=== PATIENT | female | born 1940 | race Caucasian/White ===

== ENCOUNTER → 2016-07-26 | Outpatient (CLI) | payer MEDICARE ==
[~2016-07-26] MED LIST: ALB0.5V INH; ALBU8.5H2 IH; ALEN70TA47 PO; ALPR0.25 PO; ASP325T PO; ASP81TEC PO; ASPI-587 PO; ASPI-999 PO; AZIT500T5 PO; B&C/1TAB2 PO; CALC-140 PO; CALC-196 PO; CALC200T50 PO; CALCIUM CARB PO; CHOL200018 PO; CHOL500044 PO; DCS100C PO; DICL100G13 TOP; DICL100G31 TP; DIPH25TA31 PO; ENXP40I.4 SQ; FLUT9.9S NSEACH; FURO-125 PO; FURO20TA PO; GBPN100C PO; GLUC100016 PO; GLUC500T PO; HYDR473S50 PO; LRT10T PO; MAGN500T PO; MGX400T PO; NAPR500T8 PO; OMEP20CA12 PO; OXYC-12 PO; POTA2TAB15 PO; POTA99TA17 PO; POTA99TA4 PO; UMEC1BLS IH; VIT PO
--- OUTSIDE RECORDS SUMMARY | 2016-07-26 10:46 | XMS REPORT | Continuity of Care Document ---
Author Author [facility] Organization [facility] Address Unknown Phone Unavailable Care Team Providers Care Welfare Visitor Name Role Phone Calvin Brennan PCP [phone] Source Comments Some departments are not documenting in the electronic medical record. If you do not see the information that you expected, contact Release of Information in the Health Information Management department at [phone] for further assistance in locating additional records.[facility] Active Allergies and Adverse Reactions Allergen Noted Date Severity Reactions Comments Cardizem 01/14/2014 UNKNOWN Fenofibrate 01/13/2014 UNKNOWN Isosorbide Mononitrate 01/13/2014 UNKNOWN Levofloxacin 01/13/2014 UNKNOWN Niacin 01/13/2014 UNKNOWN Nifedipine 01/13/2014 UNKNOWN Novacain 01/14/2014 UNKNOWN Penicillins 01/14/2014 UNKNOWN Rosuvastatin 01/13/2014 UNKNOWN Simvastatin 01/14/2014 UNKNOWN Sulfa (Sulfonamide 01/14/2014 UNKNOWN Antibiotics) Current Medications Prescription Sig. Disp. Refills Start End Date Status Date umeclidinium-vilanterol Inhale 1 Puff by mouth Active (ANORO ELLIPTA) 62.5-25 daily. mcg/actuation dsdv magnesium oxide (MAG-OX) Take 400 mg by mouth Active 400 mg tablet daily. loratadine (CLARITIN) 10 Take 10 mg by mouth Active mg tablet daily. omeprazole DR(+) Take 20 mg by mouth Active (PRILOSEC) 20 mg capsule daily. aspirin EC 81 mg tablet Take 81 mg by mouth Active daily. furosemide (LASIX) 20 mg Take 20 mg by mouth daily Active tablet as needed. Potassium Gluconate 595 Take 1 Tab by mouth daily Active (99) mg tab as needed. calcium carbonate/vitamin Take 1 Tab by mouth twice Active D-3 (OSCAL-500+D) 1250 daily with meals. Calcium mg/200 unit tablet Carb 1250mg delivers 500mg elemental Ca cholecalciferol (Vitamin Take 2,000 Units by mouth Active D3) (VITAMIN D-3) 1,000 daily. units tablet diclofenac(+) (VOLTAREN) Apply 2 g to affected Active 1 % gel topical gel area twice daily as needed. gabapentin (NEURONTIN) Take 100 mg by mouth Active 100 mg capsule daily. ALPRAZolam (XANAX) 0.25 Take 0.25 mg by mouth Active mg tablet twice daily as needed. albuterol 0.5% Inhale 2.5 mg solution as Active (PROVENTIL; VENTOLIN) 2.5 directed every 6 hours as mg/0.5 mL nebu nebulizer needed. solution albuterol (VENTOLIN HFA, Inhale 2 Puffs by mouth Active PROAIR HFA) 90 every 6 hours as needed. mcg/actuation inhaler oxyCODONE-acetaminophen Take 1-2 Tabs by mouth 60 Tab 0 01/18/20 Active (PERCOCET; ENDOCET; every 4 hours as needed 14 ROXICET) 5-325 mg tablet for Pain Max 12 tabs/day docusate (COLACE) 100 mg Take 1 Cap by mouth twice 90 Cap 3 01/18/20 Active capsule daily. 14 Active Problems Problem Noted Date Left acetabular fracture ([facility]) 02/25/2014 Female pelvic hematoma 01/14/2014 Bradycardia 01/14/2014 COPD (chronic obstructive pulmonary disease) ([facility]) 01/14/2014 Obesity 01/14/2014 Acute blood loss anemia 01/14/2014 Pelvic fracture ([facility]) 01/13/2014 Social History Tobacco Use Types Packs/Day Years Used Date Never Smoker Smokeless Tobacco: Never Used Alcohol Use Drinks/Week oz/Week Comments No Last Filed Vital Signs Vital Sign Reading Time Taken Blood Pressure 159/75 04/22/2014 10:33 AM CDT Pulse 92 04/22/2014 10:33 AM CDT Temperature 36.8 C (98.2 F) 01/16/2014 9:48 PM CDT Respiratory Rate - - Height 1.626 m (5' 4") 04/22/2014 10:33 AM CDT Weight 80.74 kg (178 lb) 04/22/2014 10:33 AM CDT Body Mass Index 30.54 04/22/2014 10:33 AM CDT Oxygen Saturation 93% 01/16/2014 9:48 PM CDT Plan of Care Health Maintenance Due Date Last Done Comments Physical (Comprehensive) 1947 Exam Pertussis Vaccine 1951 Tetanus Vaccine 1957 Breast Cancer Screening 1980 Shingles Vaccine 2000 Osteoporosis Screening 2005 Prevnar/Pneumovax (#1) 2005 Influenza Vaccine 03/08/2015 Results from Last 3 Months Not on file
--- NOTE | 2016-07-26 12:23 | Diagnostic Imaging Report ---
PROCEDURE: CT chest and abdomen without contrast. TECHNIQUE: Axial images were obtained from the thoracic inlet through the iliac crest without the administration of intravenous contrast. INDICATION: Hiatal hernia. Cough. FINDINGS: CT chest: There is an indeterminate nodule in the lateral aspect of the superior segment of the right lower lobe measuring 6 mm in size. There is minimal atelectasis seen in the lung bases more on the left side. There is no significant consolidation or mass otherwise. No pleural effusion. No pericardial effusion. There are coronary artery calcifications seen. There are pacemaker cardiac leads noted. The thoracic aorta is normal in caliber. No mediastinal mass. No significantly enlarged mediastinal or axillary lymphadenopathy. There is a moderate-sized paraesophageal hiatal hernia. The fundus and the proximal aspect of the gastric body area in the hernia. CT abdomen: The liver is mildly hypodense compatible with fatty infiltration. The gallbladder demonstrates no calcified stone. The spleen demonstrate scattered benign-appearing calcifications. The pancreas and the adrenal glands appear unremarkable. The kidneys demonstrate no hydronephrosis or stones. The abdominal aorta is normal in caliber. No para-aortic significantly enlarged lymph node is seen. There is a fat-containing umbilical hernia, small in size. Diastases of the recti is also seen. The osseous structures demonstrate degenerative changes in the thoracolumbar spine. IMPRESSION: CT chest: 1. A moderate sized paraesophageal hiatal hernia. 2. Indeterminate 6 mm pulmonary nodule in the superior segment of the right lower lobe. A [address] chest is recommended to ensure stability. CT abdomen: 1. Small fat-containing umbilical hernia. 2. Hepatic steatosis. Dictated by: Dictated on workstation # [id number]
== END ==
LOC: RAD 10:42
PROVIDERS: ATTEND Surgery
DX: K44.9 Diaphragmatic hernia without obstruction or gangrene (principal)
CPT/HCPCS: 71250; 74150

== ENCOUNTER 2016-07-31 05:43 | Outpatient (CLI) | payer MEDICARE, BC ==
[~2016-07-31] VITALS: Ht 162.6 cm; Wt 86.2 kg
[~2016-07-31 05:43] MED LIST changes: -ALEN70TA47 PO; -ASPI-999 PO; -AZIT500T5 PO; -B&C/1TAB2 PO; -CALC-140 PO; -CALC200T50 PO; -CHOL500044 PO; -DICL100G31 TP; -DIPH25TA31 PO; -FLUT9.9S NSEACH; -FURO-125 PO; -GLUC100016 PO; -GLUC500T PO; -HYDR473S50 PO; -MAGN500T PO; -NAPR500T8 PO; -POTA2TAB15 PO; -POTA99TA17 PO
--- OUTSIDE RECORDS SUMMARY | 2016-07-31 05:47 | XMS REPORT | Continuity of Care Document ---
Author Author [facility] Organization [facility] Address Unknown Phone Unavailable Care Team Providers Care Leather Patcher Name Role Phone Calvin Brennan PCP [phone] Source Comments Some departments are not documenting in the electronic medical record. If you do not see the information that you expected, contact Release of Information in the Health Information Management department at [phone] for further assistance in locating additional records.[facility] Active Allergies and Adverse Reactions Allergen Noted [...] Problems Problem Noted Date Left acetabular fracture ([facility]) 02/25/2014 Female pelvic hematoma 01/14/2014 Bradycardia 01/14/2014 COPD (chronic obstructive pulmonary disease) ([facility]) 01/14/2014 Obesity 01/14/2014 Acute blood loss anemia 01/14/2014 Pelvic fracture ([facility]) 01/13/2014 Social History Tobacco Use Types Packs/Day [...]
[2016-07-31] MEDS ORDERED: ASPI-999 PO (13:38)
[2016-07-31] MEDS ORDERED: DIPH25TA31 PO (13:38)
[2016-07-31] MEDS ORDERED: ALEN70TA47 PO (13:38)
[2016-07-31] MEDS ORDERED: NAPR500T8 PO (13:38)
[2016-07-31] MEDS ORDERED: CHOL500044 PO (13:40)
[2016-07-31] MEDS ORDERED: POTA2TAB15 PO (13:43)
[2016-07-31] MEDS ORDERED: FLUT9.9S NSEACH (13:43)
[2016-07-31] MEDS ORDERED: MAGN500T PO (13:43)
[2016-07-31] MEDS ORDERED: B&C/1TAB2 PO (13:43)
[2016-07-31] MEDS ORDERED: GLUC100016 PO (13:43)
[2016-07-31] MEDS ORDERED: FURO-125 PO (13:43)
== END 2016-07-31 13:44 ==
LOC: PREOP 05:43
PROVIDERS: ATTEND Surgery
DX: Z01.818 Encounter for other preprocedural examination (principal); K21.9 Gastro-esophageal reflux disease without esophagitis; K44.9 Diaphragmatic hernia without obstruction or gangrene

== ENCOUNTER 2016-08-02 08:38 | Day surgery (SDC) | payer MEDICARE, BC ==
[~2016-08-02] VITALS: Ht 162.6 cm; Wt 86.2 kg
[~2016-08-02 08:38] MED LIST changes: +ALEN70TA47 PO; +ASPI-999 PO; +B&C/1TAB2 PO; +CHOL500044 PO; +DIPH25TA31 PO; +FLUT9.9S NSEACH; +FURO-125 PO; +GLUC100016 PO; +MAGN500T PO; +NAPR500T8 PO; +POTA2TAB15 PO
--- OUTSIDE RECORDS SUMMARY | 2016-08-02 08:42 | XMS REPORT | Continuity of Care Document ---
Author Author [facility] Organization [facility] Address Unknown Phone Unavailable Care Team Providers Care Bindery Leadperson Name Role Phone Calvin Brennan PCP [phone] Source Comments Some departments are not documenting in the electronic medical record. If you do not see the information that you expected, contact Release of Information in the Health Information Management department at [phone] for further assistance in locating additional records.[facility] Active Allergies and Adverse Reactions Allergen [...] Problems Problem Noted Date Left acetabular fracture ([facility]) 02/25/2014 Female pelvic hematoma 01/14/2014 Bradycardia 01/14/2014 COPD (chronic obstructive pulmonary disease) ([facility]) 01/14/2014 Obesity 01/14/2014 Acute blood loss anemia 01/14/2014 Pelvic fracture ([facility]) 01/13/2014 Social History Tobacco Use Types Packs/Day [...]
--- OUTSIDE RECORDS SUMMARY | 2016-08-02 08:43 | XMS REPORT | Continuity of Care Document ---
Author Author [facility] Organization [facility] Address Unknown Phone Unavailable Care Team Providers Care Machinist Outside Name Role Phone Calvin Brennan PCP [phone] Source Comments Some departments are not documenting in the electronic medical record. If you do not see the information that you expected, contact Release of Information in the Health Information Management department at [phone] for further assistance in locating additional records.[facility] Active Allergies and Adverse Reactions Allergen [...] Problem Noted Date Left acetabular fracture ([facility]) 02/25/2014 Female pelvic hematoma 01/14/2014 Bradycardia 01/14/2014 COPD (chronic obstructive pulmonary disease) ([facility]) 01/14/2014 Obesity 01/14/2014 Acute blood loss anemia 01/14/2014 Pelvic fracture ([facility]) 01/13/2014 Social History Tobacco Use Types [...]
[2016-08-02] MEDS ORDERED: NS IV 500 ML 500 ML ONE (08:45)
[2016-08-02 09:00] VITALS: BP 171/77
[2016-08-02] MEDS ORDERED: fentaNYL INJECTION 100 MCG/2 ML AMP IVP PRN (09:00)
[2016-08-02] MEDS ORDERED: NALOXONE 0.4 MG/ML 1 ML (NARCAN) VIAL IVP PRN (09:00)
[2016-08-02] MEDS ORDERED: NS IV 500 ML 500 ML IV PRN (09:00)
[2016-08-02] MEDS ORDERED: MIDAZOLAM 2 MG/2 ML (VERSED) VIAL IVP PRN (09:00)
[2016-08-02] MEDS ORDERED: HURRICAINE EXT TUBE (BENZOCAINE) XX PRN (09:00)
[2016-08-02] MEDS ORDERED: FLUMAZENIL (ROMAZICON) 0.1 MG/ML 5 ML VIAL INJ PRN (09:00)
--- NOTE | 2016-08-02 09:11 | Pre-Op Note & Conscious Sedat ---
Pre-Operative Progress Note H&P Reviewed The H&P was reviewed, patient examined and no changes noted. Date H&P Reviewed: Aug 02, 2016 Time H&P Reviewed: 09:11 Pre-Op Diagnosis: paraesophageal hernia Conscious Sedation Pre-Proced ASA Class: 2 Airway Mallampati Classification: ([place] appropriate class) I. II. III, IV Lungs Heart ASA score ASA 1: a normal healthy patient ASA 2: a patient with a mild systemic disease (mid diabetes, controlled hypertension, obesity ASA 3: a patient with a severe systemic disease that limits activity (angina , COPD, prior Myocardial infarction) ASA 4: a patient with an incapacitating disease that is a constant threat to life (CHF, renal failure) ASA 5: a moribund patient not expected to survive 24 hrs. (ruptured aneurysm) ASA 6: a declared brain patient whose organs are being harvested. For emergent operations, add the letter E after the classification Grade 2 Sedation Plan: Discussed options with patient/fam Note The patient is an appropriate candidate to undergo the planned procedure, sedation, and anesthesia. The patient immediately re-assessed prior to indication. SHAWN BARFIELD MD Aug 02, 2016 9:11 am
[2016-08-02] MEDS ORDERED: fentaNYL INJECTION 100 MCG/2 ML AMP ONE (09:22)
[2016-08-02] MEDS ORDERED: MIDAZOLAM 2 MG/2 ML (VERSED) VIAL ONE ×2 (09:22)
--- NOTE | 2016-08-02 09:50 | Progress Note-Post Operative ---
Post-Operative Progess Note Pre-Operative Diagnosis paraesophageal hernia Post-Operative Diagnosis large paraesophageal hernia. Gastric ulcers Post-Op Procedure Note Date of Procedure: Aug 02, 2016 Name of Procedure: EGD with biopsy of gastric ulcers Anesthesia Type sedation Specimen(s) collected gastric ulcer SHAWN BARFIELD MD Aug 02, 2016 9:49 am
[2016-08-02 10:15] VITALS: BP 132/55
[2016-08-02 10:45] VITALS: BP 148/77
[2016-08-02 10:51] VITALS: BP 148/77
--- NOTE | 2016-08-03 08:51 | PROCEDURE REPORT ---
PROCEDURE PHYSICIAN: SHAWN BARFIELD DATE OF PROCEDURE: 08/02/2016 PROCEDURE: Upper GI endoscopy with biopsy of gastric ulcer. SURGEON: Amarjit. INDICATION FOR THE PROCEDURE: This lady is being evaluated for repair of large paraesophageal hernia. She came in for an upper endoscopy for further evaluation. Informed consent was obtained after reviewing the procedure in detail. DESCRIPTION OF PROCEDURE: She was placed in the left lateral decubitus position and her vital signs were monitored. Conscious sedation was achieved using Versed and fentanyl. The flexible gastroscope was introduced down the esophagus, past the stomach, into the proximal duodenum. FINDINGS: ESOPHAGUS: A large paraesophageal hernia without any ulceration. STOMACH: Two chronic ulcers were found at the antrum, measuring about 3 mm each, adjacent to each other. Photodocumentation and biopsies were obtained. DUODENUM: Normal. She tolerated the procedure well and was taken back to the nursing area in a stable condition. IMPRESSION: 1. Paraesophageal hernia, pending repair. 2. Incidental gastric ulcers. 3. Biopsy pending. Job ID: [id number] Dictated Date: 08/02/2016 09:46:23 Burlapper Date: 08/03/2016 08:44:48 / tony
== END 2016-08-02 10:55 | disposition home or self-care (01) ==
LOC: ENDO 08:38
PROVIDERS: ATTEND Surgery
DX: K21.9 Gastro-esophageal reflux disease without esophagitis (principal); K44.9 Diaphragmatic hernia without obstruction or gangrene; K25.7 Chronic gastric ulcer without hemorrhage or perforation
CPT/HCPCS: 88305; 88342

== ENCOUNTER 2016-09-07 10:43 | Outpatient (CLI) | payer MEDICARE, BC ==
[~2016-09-07] VITALS: Ht 162.6 cm; Wt 91.3 kg
--- OUTSIDE RECORDS SUMMARY | 2016-09-07 10:48 | XMS REPORT | Continuity of Care Document ---
Author Author [facility] Organization [facility] Address Unknown Phone Unavailable Care Team Providers Care Oracle Ebs Developer Name Role Phone Calvin Brennan PCP [phone] Source Comments Some departments are not documenting in the electronic medical record. If you do not see the information that you expected, contact Release of Information in the Health Information Management department at [phone] for further assistance in locating additional records.[facility] [...] Problems Problem Noted Date Left acetabular fracture ([facility]) 02/25/2014 Female pelvic hematoma 01/14/2014 Bradycardia 01/14/2014 COPD (chronic obstructive pulmonary disease) ([facility]) 01/14/2014 Obesity 01/14/2014 Acute blood loss anemia 01/14/2014 Pelvic fracture ([facility]) 01/13/2014 Social History Tobacco Use [...]
[2016-09-07] MEDS ORDERED: CALC200T50 PO (11:13)
[2016-09-07 11:22] VITALS: BP 135/72
[2016-09-07 11:58] LABS: BASOPHILS % (AUTO) 1 % (0-10); EOSINOPHILS # (AUTO) 0.4 10^3/uL (0.0-0.3); EOSINOPHILS % (AUTO) 6 % (0-10); LYMPHOCYTES # (AUTO) 1.3 X 10^3 (1.0-4.0); LYMPHOCYTES % (AUTO) 19 % (12-44); MEAN CORPUSCULAR HEMOGLOBIN 25 PG (25-34); MEAN CORPUSCULAR HGB CONC 30 G/DL (32-36); MEAN CORPUSCULAR VOLUME 86 FL (80-99); MEAN PLATELET VOLUME 11.4 FL (7.4-10.4); MONOCYTES # (AUTO) 0.8 X 10^3 (0.0-1.0); MONOCYTES % (AUTO) 12 % (0-12); NEUTROPHILS # (AUTO) 4.1 X 10^3 (1.8-7.8); NEUTROPHILS % (AUTO) 63 % (42-75); PLATELET COUNT 196 10^3/uL (130-400); RED BLOOD COUNT 4.09 10^6/uL (4.35-5.85); RED CELL DISTRIBUTION WIDTH 14.9 % (10.0-14.5); WHITE BLOOD COUNT 6.5 10^3/uL (4.3-11.0)
[2016-09-07 12:19] LABS: ANION GAP 11 MMOL/L (5-14); BLOOD UREA NITROGEN 17 MG/DL (7-18); BUN/CREATININE RATIO 20; CALCIUM 9.2 MG/DL (8.5-10.1); CARBON DIOXIDE 25 MMOL/L (21-32); CHLORIDE 104 MMOL/L (98-107); CREATININE SERUM 0.84 MG/DL (0.60-1.30); GFR ESTIMATED > 60; GLUCOSE 90 MG/DL (70-105); POTASSIUM 4.4 MMOL/L (3.6-5.0); SODIUM 140 MMOL/L (135-145)
== END 2016-09-07 12:48 ==
LOC: PREOP 10:43
PROVIDERS: ATTEND Surgery
DX: Z01.812 Encounter for preprocedural laboratory examination (principal); Z11.2 Encounter for screening for other bacterial diseases; K44.9 Diaphragmatic hernia without obstruction or gangrene
CPT/HCPCS: 36415; 80048; 85025; 87081

== ENCOUNTER 2016-09-19 08:40 | Inpatient (IN) | payer MEDICARE, BC ==
--- NOTE | 2016-09-18 08:25 | History & Physicial ---
History of Present Illness History of Present Illness Reason for visit/HPI evaluation for acute bronchitis but 2 months ago included a chest x-ray, revealing a large hiatal hernia. Subsequent CT scan has confirmed a paraesophageal hernia with symptoms. Esophageal manometry shows a mildly shortened lower esophageal sphincter, that is hypotensive with minor esophageal dysmotility. Therefore, it is reasonable to repair her paraesophageal hernia and perform a partial fundoplication. This is being planned to be completed using minimally invasive technique with robotic assistance Date of Admission 09/19/16 I consulted on this patient on 09/18/16 08:21 Attending Physician Shawn Barfield MD Admitting Physician Calvin Brennan MD Consult Allergies and Home Medications Allergies Coded Allergies: Penicillins (Verified Allergy, Mild, 08/02/16) Sulfa (Sulfonamide Antibiotics) (Verified Allergy, Mild, 08/02/16) fenofibrate (Verified Allergy, Mild, 08/02/16) procaine (Verified Allergy, Mild, 08/02/16) simvastatin (Unverified Allergy, Mild, 01/17/14) diltiazem (Unverified Allergy, Unknown, 01/17/14) isosorbide (Unverified Allergy, Unknown, 01/17/14) niacin (Unverified Allergy, Unknown, 01/17/14) nifedipine (Unverified Allergy, Unknown, 01/17/14) rosuvastatin (Unverified Allergy, Unknown, 01/17/14) levofloxacin (Unverified Adverse Reaction, Mild, 01/17/14) Home Medications Albuterol 8.5 Gm Hfa.aer.ad 2 PUFF IH Q6H PRN PRN SHORTNESS OF BREATH (Reported ) 2 PUFFS NEEDED FOR SHORTNESS OF BREATH Alendronate Sodium 70 Mg Tablet 70 MG PO WEEK (Reported) Alprazolam 0.25 Mg Tablet 0.25 MG PO BID PRN PRN ANXIETY (Reported) NEEDED FOR ANXIETY Aspirin 81 Mg Tab.chew 81 MG PO DAILY (Reported) B&C/FA/Zinc/Copper Oxide/Vit E 1 Each Tablet 1 EACH PO DAILY (Reported) Calcium Carbonate/Vitamin D3 1 Each Tablet 1 EACH PO BID (Reported) Calcium Citrate 200 Mg Tablet 100 MG PO (Reported) Cholecalciferol (Vitamin D3) 5,000 Unit Tablet 5,000 UNIT PO BID (Reported) Diclofenac Sod 100 Gm Gel 2 GM TOP BID PRN PRN PAIN (Reported) APPLY 2 GM TWICE DAILY NEEDED FOR PAIN Diphenhydramine HCl 25 Mg Tablet 25 MG PO HS (Reported) Docusate Sodium 100 Mg Capsule 100 MG PO HS PRN PRN CONSTIPATION (Reported) Fluticasone Propionate 9.9 Ml [place].susp 1 SPRAY NSEACH DAILY (Reported) Furosemide 20 Mg Tablet 20 MG PO DAILY (Reported) Glucosamine Sulfate 2Kcl 1,000 Mg Tablet 500 MG PO DAILY (Reported) Loratadine 10 Mg Tab 10 MG PO DAILY (Reported) Magnesium Oxide 500 Mg Tablet 500 MG PO DAILY (Reported) Omeprazole 20 Mg Capsule.dr 20 MG PO DAILY (Reported) Potassium Gluconate 500 Mg Tablet 500 MG PO BID (Reported) Past Snwsdqf-Idsukp-Dvdmlx Hx Patient Social History Employed/Student: retired Alcohol Use: Denies Use Smoking Status: Never a Smoker Recent Hopitalizations: No Seasonal Allergies Seasonal Allergies: Yes Surgeries Surgeries: Adenoidectomy, Appendectomy, Hysterectomy, Joint Replacement, Nose, Pacemaker, Tonsillectomy Respiratory Hx Respiratory Disorders: No (wears oxygen at HS) Cardiovascular Hx Cardiovascular Disorders: No (pacemaker) Cardiac Disorders: Heart Murmur, Irregular Heartbeat Neurological Hx Neurological Disorders: No Reproductive System Hx Reproductive Disorders: No Genitourinary Hx Genitourinary Disorders: Yes Genitourinary Disorders: UTI-Chronic Gastrointestinal Hx Gastrointestinal Disorders: Yes Gastrointestinal Disorders: Gastroesophageal Reflux, Hemorrhoids, Hiatal Hernia Musculoskeletal Hx Musculoskeletal Disorders: Yes Musculoskeletal Disorders: Arthritis Endocrine Hx Endocrine Disorders: No HEENT HX ENT Disorders: Yes (Nasal polyps removed. ) Cancer Hx Cancer: No Psychosocial Hx Psychiatric Problems: Yes Behavioral Health Disorders: Anxiety Integumentary HX Skin/Integumentary Disorder: Yes Skin/Integumentary Disorders: Eczema Blood Transfusions Hx Blood Disorders: No Constitutional: no symptoms reported EENTM: no symptoms reported Respiratory: cough Cardiovascular: no symptoms reported Gastrointestinal: dysphagia heartburn Musculoskeletal: no symptoms reported Skin: no symptoms reported Psychiatric/Neurological: No Symptoms Reported Physical Exam Vital Signs Capillary Refill : General Appearance: No Apparent Distress HEENT: PERRL/EOMI Neck: Normal Inspection Respiratory: Lungs Clear Cardiovascular: Regular Rate, Rhythm Gastrointestinal: No Organomegaly Non Tender Hernia Back: Normal Inspection Extremity: Normal Capillary Refill Neurologic/Psychiatric: Alert Oriented x3 Skin: Warm/Dry Comments reducible, small ventral hernia around the umbilicus Assessment/Plan Assessment and Plan lady with a paraesophageal hernia. Minimal esophageal motility. Offered repair of the paraesophageal hernia with a biologic mesh reinforcement and partial fundoplication, using robotic assistance. Expected recovery, dysphagia , complications etc. reviewed in detail. Willing to proceed Admission Diagnosis paraesophageal hernia SHAWN BARFIELD MD Sep 18, 2016 8:25 am
[~2016-09-19] VITALS: Ht 162.6 cm; Wt 91.3 kg
[2016-09-19] VITALS (9 sets, daily range): BP systolic 125–153; BP diastolic 62–73
[~2016-09-19 08:40] MED LIST changes: +CALC200T50 PO
[2016-09-19] MEDS: LACTATED RINGERS 1,000 ML IV PRN ×3 (08:50→14:20)
--- OUTSIDE RECORDS SUMMARY | 2016-09-19 08:55 | XMS REPORT | Continuity of Care Document ---
Author Author [facility] Organization [facility] Address Unknown Phone Unavailable Care Team Providers Care Hemp Fiber Taker Off Name Role Phone Calvin Brennan PCP [phone] Source Comments Some departments are not documenting in the electronic medical record. If you do not see the information that you expected, contact Release of Information in the Health Information Management department at [phone] for further assistance in locating additional records.Primary [...] Problems Problem Noted Date Left acetabular fracture ([facility]) 02/25/2014 Female pelvic hematoma 01/14/2014 Bradycardia 01/14/2014 COPD (chronic obstructive pulmonary disease) ([facility]) 01/14/2014 Obesity 01/14/2014 Acute blood loss anemia 01/14/2014 Pelvic fracture ([facility]) 01/13/2014 Social History Tobacco Use [...]
--- OUTSIDE RECORDS SUMMARY | 2016-09-19 08:56 | XMS REPORT | Continuity of Care Document ---
Author Author [facility] Organization [facility] Address Unknown Phone Unavailable Care Team Providers Care Php Website Developer Name Role Phone Calvin Brennan PCP [phone] Source Comments Some departments are not documenting in the electronic medical record. If you do not see the information that you expected, contact Release of Information in the Health Information Management department at [phone] for further assistance in locating additional records.[facility] Active Allergies and Adverse Reactions Allergen [...] Problems Problem Noted Date Left acetabular fracture ([facility]) 02/25/2014 Female pelvic hematoma 01/14/2014 Bradycardia 01/14/2014 COPD (chronic obstructive pulmonary disease) ([facility]) 01/14/2014 Obesity 01/14/2014 Acute blood loss anemia 01/14/2014 Pelvic fracture ([facility]) 01/13/2014 Social History Tobacco Use Types [...]
[2016-09-19] MEDS ORDERED: VANCOMYCIN 1 GM/NS 250 ML IVPB IV ONE ×2 (09:00)
[2016-09-19] MEDS ORDERED: FAMOTIDINE 20MG/2ML IV (PEPCID) IV ONE (09:45)
[2016-09-19] MEDS ORDERED: BUP/EPI 0.25% 1:200,000 (MARCAINE) 30 ML VIAL ONE (10:01)
--- NOTE | 2016-09-19 10:11 | Progress Note-Pre Operative ---
Pre-Operative Progress Note H&P Reviewed The H&P was reviewed, patient examined and no changes noted. Date H&P Reviewed: Sep 19, 2016 Time H&P Reviewed: 10:09 Pre-Operative Diagnosis: Para-esophageal hernia SHAWN BARFIELD MD Sep 19, 2016 10:11 am
[2016-09-19] MEDS ORDERED: proPOfol 200 MG/20 ML (DIPRIVAN) VIAL IV ONE (10:34)
[2016-09-19] MEDS ORDERED: ROCURONIUM 50 MG/5 ML (ZEMURON) VIAL IV ONE ×2 (10:34→12:40)
[2016-09-19] MEDS ORDERED: LIDOCAINE PF 2% 10 ML (XYLOCAINE) AMP ONE (10:34)
[2016-09-19] MEDS ORDERED: DEXAMETHASONE PF 10 MG/ML (DECADRON) VIAL ONE (10:34)
[2016-09-19] MEDS ORDERED: ONDANSETRON 4 MG/2 ML (SDV) Z0FRAN ONE (10:34)
[2016-09-19] MEDS ORDERED: LACTATED RINGERS 1,000 ML IV ONE ×3 (10:34→14:22)
[2016-09-19] MEDS ORDERED: SEVOFLURANE (ULTANE) 15 ML INHAL SOLN ONE ×15 (10:34→14:50)
[2016-09-19] MEDS ORDERED: fentaNYL INJECTION 250 MCG/5 ML AMP ONE (10:35)
[2016-09-19] MEDS ORDERED: ALBUTEROL INHALER HFA (VENTOLIN HFA) 8 GM IH ONE ×4 (14:17→14:50)
[2016-09-19] MEDS ORDERED: GLYCOPYRROLATE 0.2 MG/ML (ROBINUL) 2 ML VIAL ONE ×2 (14:22→14:50)
[2016-09-19] MEDS ORDERED: NEOSTIGMINE (BLOXIVERZ ) 1 MG/1ML 10 ML VIAL ONE (14:50)
--- NOTE | 2016-09-19 15:07 | Progress Note-Post Operative ---
Post-Operative Progess Note Pre-Operative Diagnosis Para-esophageal hernia Post-Operative Diagnosis Same Post-Op Procedure Note Date of Procedure: Sep 19, 2016 Name of Procedure: Robotic assisted repair with fundoplication Anesthesia Type Gen Estimated blood loss (mL): 50 SHAWN BARFIELD MD Sep 19, 2016 15:07
[2016-09-19] MEDS ORDERED: fentaNYL INJECTION 100 MCG/2 ML AMP IV PRN ×2 (15:15)
[2016-09-19] MEDS ORDERED: HYDROcodone/APAP 7.5MG-325 MG/15 ML (LORTAB) UDC PO PRN (15:15)
[2016-09-19] MEDS ORDERED: ONDANSETRON 4 MG/2 ML (SDV) Z0FRAN IV ONE (15:15)
[2016-09-19] MEDS ORDERED: morphine INJ 10 MG/ML 1ML (SYR OR VIAL) IV PRN (15:15)
[2016-09-19] MEDS ORDERED: ONDANSETRON 4 MG/2 ML (SDV) Z0FRAN IVP PRN (15:15)
[2016-09-19] MEDS ORDERED: PATIENT MAY USE OWN MEDS, ALL PO SCH (15:15)
[2016-09-19] MEDS ORDERED: AZIT500T5 PO (16:06)
[2016-09-19] MEDS ORDERED: GLUC500T PO (16:06)
[2016-09-19] MEDS ORDERED: DICL100G31 TP (16:06)
[2016-09-19] MEDS ORDERED: CALC-140 PO (16:06)
[2016-09-19] MEDS ORDERED: POTA99TA17 PO (16:06)
[2016-09-19] MEDS ORDERED: ALPRAZolam 0.25 MG (XANAX) TAB PO PRN (17:00)
[2016-09-19] MEDS: LACTATED RINGERS 1,000 ML IV SCH (17:00)
[2016-09-19] MEDS: RT-ALBUTEROL/IPRATROPIUM 3 ML (DUONEB) VIAL INH SCH ×2 (18:57→23:09)
[2016-09-19] MEDS ORDERED: FLU TRIvalent (5 YOA+) 2016-17 (AFLURIA) 0.5 ML IM ONE (19:45)
[2016-09-19] MEDS: PANTOPRAZOLE 40 MG/10 ML (PROTONIX) VIAL IVP SCH (21:49)
[2016-09-20] VITALS (14 sets, daily range): BP systolic 97–131; BP diastolic 47–67
[2016-09-20] MEDS: RT-ALBUTEROL/IPRATROPIUM 3 ML (DUONEB) VIAL INH SCH ×6 (02:52→22:00)
[2016-09-20] MEDS: LACTATED RINGERS 1,000 ML IV SCH (03:46)
[2016-09-20] MEDS: LORATADINE (CLARITIN) 10 MG TAB PO SCH (08:34)
[2016-09-20] MEDS: FUROSEMIDE 20 MG (LASIX) TAB PO SCH (08:34)
[2016-09-20] MEDS: PANTOPRAZOLE 40 MG/10 ML (PROTONIX) VIAL IVP SCH ×2 (08:34→20:42)
--- NOTE | 2016-09-20 10:02 | OPERATIVE REPORT ---
PROCEDURE PHYSICIAN: SHAWN BARFIELD DATE OF PROCEDURE: 09/19/2016 PREOPERATIVE DIAGNOSIS: Paraesophageal hernia. POSTOPERATIVE DIAGNOSIS: Paraesophageal hernia. OPERATION: Robotic assisted repair of paraesophageal hernia with complete fundoplication SURGEON: Amarjit ANESTHESIA: General anesthesia. BLOOD LOSS: 50 mL. FLUIDS: 2200 mL of crystalloids. TYPE OF WOUND: Type 1 (clean wound). INDICATION FOR PROCEDURE: This lady presented with a symptomatic paraesophageal hernia. After an adequate preoperative evaluation including esophageal manometry, it was felt appropriate to proceed with minimally invasive repair of the hernia with fundoplication. Informed consent was obtained after reviewing the operative details and complications of postoperative bleeding, hematoma and cardiorespiratory dysfunction. DESCRIPTION OF PROCEDURE: She was placed supine on the operating table and general anesthesia induced. Prophylactic antibiotics were administered intravenously. Sequential compression devices were placed around her legs, to minimize the risk of venous thrombosis. A Lee catheter was placed to decompress the bladder during surgery and to monitor urine output during the postoperative period. Abdomen was prepared and draped in the usual sterile manner. Pneumoperitoneum was established using a Veress needle introduced 5 cm superior to the umbilicus. Intra-abdominal pressure was maintained at 15 mmHg. A 12 mm trocar was placed and anatomy visualized using the high definition, 3 dimensional laparoscope associated with da Kirit system. Under direct view, I placed 8.5 mm cannulae over each side of the abdomen, followed by a 12 mm trocar to the left of the umbilicus to facilitate using an assist grasper. An additional 5 mm trocar was placed over the right side for the same purpose. The patient was then turned into steep reverse Trendelenburg position and the robotic system docked in place. The left lobe of the liver was retracted using grasping forceps revealing the esophageal hiatus. Paraesophageal hernia was confirmed containing the fundus and the proximal aspect of the body of the stomach. By traction and countertraction, lesser omentum was mobilized, revealing the right marie of the diaphragm. Subsequently, the short gastric vessels were taken down and the fundus was completely mobilized. The hernia sac was excised using a combination of vessel sealing device and hook cautery, achieving complete reduction of the hernia. Subsequently, the fundus was brought across to the right side, along the retro-esophageal window, completing the shoe-shine maneuver. It appeared to be very floppy without any tension. Therefore, full fundoplication was felt to be reasonable. Crural repair was performed using a total of 3 interrupted sutures with 0 Ethibond, using robotic assistance. Subsequently fundoplication was performed using a total of 3 sutures with the same material. One of the sutures incorporated the periesophageal tissue. There was no tension and hemostasis satisfactory. The fascia over this supraumbilical incision was closed using number 1 Vicryl using an Endo Close device under direct laparoscopic view. Skin incisions were closed using 4-0 Vicryl, in a subcuticular fashion. 0.25% Marcaine with epinephrine was infiltrated along the incisions, both preemptively and at the conclusion of the operation. She tolerated the procedure well, was extubated in the operating room and taken to the recovery room in a stable condition. [place], sponges, and instruments were correct the end of the operation. Job ID: [id number] Dictated Date: 09/19/2016 15:03:54 Pressurised Container Filler Date: 09/20/2016 09:52:43 / tony MANUEL
--- NOTE | 2016-09-20 11:56 | Progress Note-Standard ---
Standard Progress Note Progress Notes/Assess & Plan Progress/Assessment & Plan 09/20/16:doing well. Nausea and vomiting this morning. We'll continue to use full liquids. Incisions dry. Vital signs stable.would benefit from another day in the hospital Final Diagnosis paraesophageal hernia SHAWN BARFIELD MD Sep 20, 2016 11:56 am
[2016-09-20] MEDS: METOCLOPRAMIDE INJ 10 MG/2 ML (REGLAN) IVP SCH ×2 (13:50→18:48)
[2016-09-20] MEDS ORDERED: APAP 325 MG/10.15 ML LIQ (TYLENOL) UDC PO PRN (14:30)
--- NOTE | 2016-09-20 14:46 | Anesthesia-General Post-Op ---
General Patient Condition Mental Status/LOC: Same as Preop Cardiovascular: Satisfactory Nausea/Vomiting: Absent Respiratory: Satisfactory Pain: Controlled Complications: Absent Post Op Complications Complications None Follow Up Care/Instructions Patient Instructions None needed. Anesthesia/Patient Condition Patient Condition Patient is doing well, no complaints, stable vital signs, no apparent adverse anesthesia problems. No complications reported per nursing. JACY ALLEN CRNA Sep 20, 2016 14:46
[2016-09-20] MEDS: AZITHROMYCIN INJECTION 500 MG in NS (IVPB) 250 ML IV SCH (15:05)
[2016-09-21] VITALS: BP 121/59
[2016-09-21] MEDS: METOCLOPRAMIDE INJ 10 MG/2 ML (REGLAN) IVP SCH ×3 (00:54→12:00)
[2016-09-21] MEDS: RT-ALBUTEROL/IPRATROPIUM 3 ML (DUONEB) VIAL INH SCH ×4 (02:44→14:36)
[2016-09-21 04:00] VITALS: BP 131/66
[2016-09-21 08:33] VITALS: BP 109/68
[2016-09-21] MEDS: FUROSEMIDE 20 MG (LASIX) TAB PO SCH (09:07)
[2016-09-21] MEDS: PANTOPRAZOLE 40 MG/10 ML (PROTONIX) VIAL IVP SCH (09:07)
[2016-09-21] MEDS: LORATADINE (CLARITIN) 10 MG TAB PO SCH (09:07)
[2016-09-21] MEDS: AZITHROMYCIN INJECTION 500 MG in NS (IVPB) 250 ML IV SCH (09:08)
--- NOTE | 2016-09-21 09:38 | Progress Note-Standard ---
Standard Progress Note Progress Notes/Assess & Plan Progress/Assessment & Plan 09/20/16:doing well. Nausea and vomiting this morning. We'll continue to use full liquids. Incisions dry. Vital signs stable.would benefit from another day in the hospital 09/21/16:afebrile. Pre-existing acute bronchitis, currently on intravenous azithromycin. Tolerating soft diet. Incisions dry. Passing flatus. Could be discharged home. Recommend using home oxygen and incentive spirometry. Short- term follow-up. Final Diagnosis paraesophageal hernia SHAWN BARFIELD MD Sep 21, 2016 9:38 am
[2016-09-21] MEDS ORDERED: HYDR473S50 PO (09:40)
--- NOTE | 2016-09-21 09:43 | Discharge Inst-Simple/Standard ---
Discharge Inst-Standard Discharge Medications New, Converted or Re-Newed RX: RX on Chart Patient Instructions/Follow Up Plan of Care/Instructions/FU: to use incentive spirometry at home. Continue home oxygen to maintain saturations above 90 percent. Please have the daughter call me directly should there be any concerns over the weekend Activity as Tolerated: Yes Discharge Diet: Soft Diet Planned Outpatient Orders/Ref. Pneu Vac Indicated: Yes SHAWN BARFIELD MD Sep 21, 2016 9:43 am
--- NOTE | 2016-09-21 11:19 | DISCHARGE SUMMARY ---
DATE OF ADMISSION: 09/19/2016 DATE OF DISCHARGE: 09/21/2016 DIAGNOSIS: Paraesophageal hernia. This lady underwent robotic assisted repair of her paraesophageal hernia with full fundoplication. She has made a reasonable recovery. At the time of discharge, she is tolerating a soft diet and is afebrile. I have encouraged her to continue using incentive spirometry. She was on Zithromax to manage acute bronchitis. This will be continued following discharge. From a postoperative standpoint, she will be seen in my office in 2 weeks. I have encouraged her to contact me, should there be any concerns in the interim Job ID: [id number] Dictated Date: 09/21/2016 09:39:37 Experimental Psychologist Date: 09/21/2016 11:16:24/tony
[2016-09-21 11:27] VITALS: BP 136/63
[2016-09-21 15:10] VITALS: BP 136/63
== END 2016-09-21 15:10 | disposition home or self-care (01) | DRG 328 ==
LOC: SDC 08:40 → ICU 08:41 → SDC 16:59 → UNDOFXSDCRRACCOM 09-20 13:00 → UNDOFXSDCACCOM 09-20 13:00 → UNDOFXSDCSVC 09-20 13:00
PROVIDERS: ADMIT Surgery; ATTEND Surgery
PROC: 0BQR4ZZ (ICD-10-PCS; 2016-09-19)
PROC: 0BQS4ZZ (ICD-10-PCS; 2016-09-19)
PROC: 8E0W4CZ Robotic Assisted Procedure of Trunk Region, Percutaneous Endoscopic Approach (ICD-10-PCS; 2016-09-19)
PROC: 0DV44ZZ Restriction of Esophagogastric Junction, Percutaneous Endoscopic Approach (ICD-10-PCS; principal; 2016-09-19 10:55)
DX: K44.9 Diaphragmatic hernia without obstruction or gangrene (principal); J20.9 Acute bronchitis, unspecified
CPT/HCPCS: 94640; 94664

== ENCOUNTER 2016-11-23 05:49 | Outpatient (CLI) | payer MEDICARE, BC ==
[~2016-11-23] VITALS: Ht 162.6 cm; Wt 83.0 kg
[~2016-11-23 05:49] MED LIST changes: +AZIT500T5 PO; +CALC-140 PO; +DICL100G31 TP; +GLUC500T PO; +HYDR473S50 PO; +POTA99TA17 PO
[2016-11-23] MEDS ORDERED: MONT10TA24 PO (11:17)
[2016-11-23] MEDS ORDERED: OMEP20TA7 PO (11:17)
[2016-11-23] MEDS ORDERED: LACT1CAP74 PO (11:23)
[2016-11-23] MEDS ORDERED: ALEN70TA47 PO (11:23)
== END 2016-11-23 11:20 ==
LOC: PREOP 05:49
PROVIDERS: ATTEND Surgery
DX: Z01.818 Encounter for other preprocedural examination (principal); Z12.11 Encounter for screening for malignant neoplasm of colon

== ENCOUNTER 2016-11-26 07:24 | Day surgery (SDC) | payer MEDICARE, BC ==
[~2016-11-26] VITALS: Ht 162.6 cm; Wt 83.0 kg
[~2016-11-26 07:24] MED LIST changes: +LACT1CAP74 PO; +MONT10TA24 PO; +OMEP20TA7 PO
[2016-11-26] MEDS ORDERED: NALOXONE 0.4 MG/ML 1 ML (NARCAN) VIAL IVP PRN (07:45)
[2016-11-26] MEDS ORDERED: FLUMAZENIL (ROMAZICON) 0.1 MG/ML 5 ML VIAL INJ PRN (07:45)
[2016-11-26] MEDS ORDERED: NS IV 500 ML 500 ML IV PRN (07:50)
[2016-11-26 07:56] VITALS: BP 133/77
[2016-11-26] MEDS ORDERED: fentaNYL INJECTION 100 MCG/2 ML AMP ONE ×2 (08:33)
[2016-11-26] MEDS ORDERED: MIDAZOLAM 2 MG/2 ML (VERSED) VIAL ONE ×3 (08:33)
--- NOTE | 2016-11-26 09:07 | Conscious Sedation/ASA ---
Conscious Sedation Pre-Proced Time Reviewed: 08:27 ASA Class: 2 Airway Mallampati Classification: ([place] appropriate class) I. II. III, IV Lungs Heart ASA score ASA 1: a normal healthy patient ASA 2: a patient with a mild systemic disease (mid diabetes, controlled hypertension, obesity ASA 3: a patient with a severe systemic disease that limits activity (angina , COPD, prior Myocardial infarction) ASA 4: a patient with an incapacitating disease that is a constant threat to life (CHF, renal failure) ASA 5: a moribund patient not expected to survive 24 hrs. (ruptured aneurysm) ASA 6: a declared brain patient whose organs are being harvested. For emergent operations, add the letter E after the classification Grade 2 Sedation Plan: Discussed options with patient/fam Note The patient is an appropriate candidate to undergo the planned procedure, sedation, and anesthesia. The patient immediately re-assessed prior to indication. SHAWN BARFIELD MD November 26, 2016 9:07 am
[2016-11-26] MEDS: fentaNYL INJECTION 100 MCG/2 ML AMP IVP PRN ×3 (09:17→09:25)
[2016-11-26] MEDS: MIDAZOLAM 2 MG/2 ML (VERSED) VIAL IVP PRN ×3 (09:19→09:27)
--- NOTE | 2016-11-26 09:45 | Endoscopy Procedure Report ---
Endoscopy Report Date: November 26, 2016 Preoperative Diagnosis: screening. Family history of colon cancer Study Performed: Colonoscopy Procedure Instrument: Colonoscope Endo Procedure/Findings Findings 1.: Polyp, Diverticulosis Recommendations: Recommendations: 1.: Colonscopy in 5 years Copy Copies To 1: HALLIE LINDER MD, XAVIER M MD November 26, 2016 9:45 am
--- NOTE | 2016-11-26 09:50 | Discharge Inst-Simple/Standard ---
Discharge Inst-Standard Discharge Medications New, Converted or Re-Newed RX: Other Patient Instructions/Follow Up Plan of Care/Instructions/FU: repeat colonoscopy in 5 years Activity as Tolerated: Yes Discharge Diet: No Restrictions SHAWN BARFIELD MD November 26, 2016 9:50 am
[2016-11-26 10:05] VITALS: BP 133/77
--- NOTE | 2016-11-26 10:19 | OPERATIVE REPORT ---
DATE OF SERVICE: 11/26/2016 PROCEDURES: 1. Screening colonoscopy. 2. Polypectomy (hot biopsy). SURGEON: Amarjit INDICATION FOR PROCEDURE: This lady came in for screening colonoscopy. She reported a family history of colon cancer in her grandmother. Informed consent was obtained was after reviewing the procedure in detail. DESCRIPTION OF PROCEDURE: She was placed in left lateral decubitus position and her vital signs were monitored. Conscious sedation was achieved using Versed and fentanyl. Digital rectal examination was unremarkable. The colonoscope was then introduced in the rectum and advanced with difficulty to the cecum. The scope was then withdrawn slowly and the mucosa examined in a systematic fashion. FINDINGS: 1. Quite severe sigmoid diverticulosis. This contributed to the difficulty negotiating around the sigmoid colon. 2. A 2 mm polyp at the proximal sigmoid colon, that was excised with hot biopsy forceps. She tolerated the procedure well and was taken back to the nursing area in a stable condition. IMPRESSION: Screening colonoscopy. Small sigmoid polyp excised. Recommend repeating in 5 years. Job ID: [id number] DocumentID: [id number] Dictated Date: 11/26/2016 09:42:53 Service Support Representative Date: 11/26/2016 10:18:37 Dictated By: MD KALEB WHEATLEY
[2016-11-26 10:30] VITALS: BP 106/57
[2016-11-26 11:00] VITALS: BP 106/57
== END 2016-11-26 11:00 | disposition home or self-care (01) ==
LOC: ENDO 07:24
PROVIDERS: ATTEND Surgery
DX: Z12.11 Encounter for screening for malignant neoplasm of colon (principal); K63.5 Polyp of colon; K57.90 Diverticulosis of intestine, part unspecified, without perforation or abscess without bleeding; Z80.0 Family history of malignant neoplasm of digestive organs; J44.9 Chronic obstructive pulmonary disease, unspecified; M06.9 Rheumatoid arthritis, unspecified; I49.9 Cardiac arrhythmia, unspecified; M19.90 Unspecified osteoarthritis, unspecified site; Z79.899 Other long term (current) drug therapy
CPT/HCPCS: 88305

== ENCOUNTER 2017-04-11 05:40 | Outpatient (CLI) | payer MEDICARE, BC ==
[~2017-04-11] VITALS: Ht 162.6 cm; Wt 79.8 kg
[~2017-04-11 05:40] MED LIST changes: -ALPR0.254 PO; -CALC-654 PO; -CHOL100045 PO; -L. A1CAP11 PO; -MULT-1021 PO; -POTA99TA25 PO; -RT-ALBUINH IH; -SIME125T PO; -VITA1CAP PO
[2017-04-11] MEDS ORDERED: CHOL100045 PO (10:52)
[2017-04-11] MEDS ORDERED: L. A1CAP11 PO (10:52)
[2017-04-11] MEDS ORDERED: ALPR0.254 PO (10:52)
[2017-04-11] MEDS ORDERED: CALC-654 PO (10:52)
[2017-04-11] MEDS ORDERED: RT-ALBUINH IH (10:52)
[2017-04-11] MEDS ORDERED: VITA1CAP PO (10:55)
[2017-04-11] MEDS ORDERED: MULT-1021 PO (10:55)
[2017-04-11] MEDS ORDERED: POTA99TA25 PO (10:55)
[2017-04-11] MEDS ORDERED: SIME125T PO (10:55)
== END 2017-04-11 11:01 ==
LOC: PREOP 05:40
PROVIDERS: ATTEND Surgery
DX: Z01.818 Encounter for other preprocedural examination (principal); R11.0 Nausea; R13.10 Dysphagia, unspecified

== ENCOUNTER → 2017-04-11 | Outpatient (CLI) | payer MEDICARE, BC ==
[~2017-04-11] MED LIST changes: +ALPR0.254 PO; +CALC-654 PO; +CHOL100045 PO; +L. A1CAP11 PO; +MULT-1021 PO; +POTA99TA25 PO; +RT-ALBUINH IH; +SIME125T PO; +VITA1CAP PO
[2017-04-11 13:29] LABS: BLOOD UREA NITROGEN 15 MG/DL (7-18); BUN/CREATININE RATIO 18; CREATININE SERUM 0.84 MG/DL (0.60-1.30); GFR ESTIMATED > 60
--- NOTE | 2017-04-11 14:10 | Diagnostic Imaging Report ---
PROCEDURE: CT abdomen without contrast. TECHNIQUE: Multiple contiguous axial images were obtained through the abdomen without the use of intravenous contrast. INDICATION: Epigastric pain. FINDINGS: The lung bases demonstrate minimal left basilar atelectasis. There is diffuse hepatic steatosis with significantly more fatty infiltration seen within the left hepatic lobe with no definitive focal mass identified. The spleen is not enlarged with calcified granuloma seen. The adrenal glands appear unremarkable. The pancreas appears unremarkable for an unenhanced exam. No calcified gallstones seen. There is a small to moderate hiatal hernia. There is a tiny fat-containing supraumbilical ventral hernia seen which appears to be along the superior aspect of a scar from prior vertical incision. There is diastasis of the recti. More inferiorly at the level of the umbilicus, there is a small fat-containing hernia. The kidneys demonstrate no stones or hydronephrosis. The abdominal aorta is normal in caliber. No para-aortic significantly enlarged lymph node is seen. The lumbar spine demonstrates prominent degenerative changes and lower thoracic spine demonstrates prominent disc degenerative changes as well. IMPRESSION: 1. Small to moderate hiatal hernia. 2. Hepatic steatosis. 3. Umbilical and upper abdominal small fat-containing ventral hernias. Dictated by: Dictated on workstation # [id number]
== END ==
LOC: RAD 13:00
PROVIDERS: ATTEND Surgery
DX: K76.0 Fatty (change of) liver, not elsewhere classified (principal); K44.9 Diaphragmatic hernia without obstruction or gangrene; K43.9 Ventral hernia without obstruction or gangrene
CPT/HCPCS: 36415; 74150; 82565; 84520

== ENCOUNTER 2017-04-16 07:09 | Day surgery (SDC) | payer MEDICARE, BC ==
[~2017-04-16] VITALS: Ht 162.6 cm; Wt 79.8 kg
[~2017-04-16 07:09] MED LIST changes: +ALPR0.254 PO; +CALC-654 PO; +CHOL100045 PO; +L. A1CAP11 PO; +MULT-1021 PO; +POTA99TA25 PO; +RT-ALBUINH IH; +SIME125T PO; +VITA1CAP PO
--- OUTSIDE RECORDS SUMMARY | 2017-04-16 07:13 | XMS REPORT | Clinical Summary ---
Author Author [facility] Organization [facility] Address Unknown Phone Unavailable Care Team Providers Care Absorption Plant Operator Helper Name Role Phone PCP Unavailable Source Comments Some departments are not documenting in the electronic medical record. If you do not see the information that you expected, contact Release of Information in the Health Information Management department at [phone] for further assistance in locating additional records.[facility] Allergies Active Allergy Reactions Severity Noted Date Comments Diltiazem Hcl UNKNOWN 01/14/2014 Fenofibrate UNKNOWN 01/13/2014 Isosorbide Mononitrate UNKNOWN 01/13/2014 Levofloxacin UNKNOWN 01/13/2014 Niacin UNKNOWN 01/13/2014 Nifedipine UNKNOWN 01/13/2014 Procaine UNKNOWN 01/14/2014 Penicillins UNKNOWN 01/14/2014 Rosuvastatin UNKNOWN 01/13/2014 Simvastatin UNKNOWN 01/14/2014 Sulfa (Sulfonamide UNKNOWN 01/14/2014 Antibiotics) Current Medications Prescription Sig. Disp. Refills [...] Problems Problem Noted Date Left acetabular fracture ([facility]) 02/25/2014 Female pelvic hematoma 01/14/2014 Bradycardia 01/14/2014 COPD (chronic obstructive pulmonary disease) ([facility]) 01/14/2014 Obesity 01/14/2014 Acute blood loss anemia 01/14/2014 Pelvic fracture ([facility]) 01/13/2014 Social History Tobacco Use Types Packs/Day Years Used Date Never Smoker Smokeless Tobacco: Never Used Alcohol Use Drinks/Week oz/Week Comments No Sex Assigned at Date Recorded Not on file Last Filed Vital Signs Vital Sign Reading Time Taken Blood Pressure 159/75 04/22/2014 10:33 AM CDT Pulse 92 04/22/2014 10:33 AM CDT Temperature 36.8 C (98.2 F) 01/16/2014 9:48 PM CDT Respiratory Rate - - Oxygen Saturation 93% 01/16/2014 9:48 PM CDT Inhaled Oxygen - - Concentration Weight 80.7 kg (178 lb) 04/22/2014 10:33 AM CDT Height 162.6 cm (5' 4") 04/22/2014 10:33 AM CDT Body Mass Index 30.55 04/22/2014 10:33 AM CDT Plan of Treatment Health Maintenance Due Date Last Done Comments PHYSICAL (COMPREHENSIVE) 1947 EXAM PERTUSSIS VACCINE 1951 TETANUS VACCINE 1957 SHINGLES VACCINE 2000 OSTEOPOROSIS SCREENING 2005 PREVNAR/PNEUMOVAX (#1) 2005 INFLUENZA VACCINE 04/07/2017 Results Not on filefrom Last 3 Months
[2017-04-16] MEDS ORDERED: HURRICAINE EXT TUBE (BENZOCAINE) XX PRN (07:45)
[2017-04-16] MEDS ORDERED: NS IV 500 ML 500 ML IV SCH (07:45)
[2017-04-16 07:50] VITALS: BP 139/71
[2017-04-16] MEDS ORDERED: fentaNYL INJECTION 100 MCG/2 ML AMP ONE (08:13)
[2017-04-16] MEDS ORDERED: HURRICAINE EXT TUBE (BENZOCAINE) ONE (08:14)
[2017-04-16] MEDS ORDERED: MIDAZOLAM 2 MG/2 ML (VERSED) VIAL ONE ×3 (08:14)
[2017-04-16] MEDS: fentaNYL INJECTION 100 MCG/2 ML AMP IVP PRN ×2 (08:20→08:45)
[2017-04-16] MEDS: MIDAZOLAM 2 MG/2 ML (VERSED) VIAL IVP PRN ×2 (08:21→08:46)
--- NOTE | 2017-04-16 08:24 | Conscious Sedation/ASA ---
Conscious Sedation Pre-Proced Time Reviewed: 08:24 ASA Class: 2 Airway Mallampati Classification: ([place] appropriate class) I. II. III, IV Lungs Heart ASA score ASA 1: a normal healthy patient ASA 2: a patient with a mild systemic disease (mid diabetes, controlled hypertension, obesity ASA 3: a patient with a severe systemic disease that limits activity (angina , COPD, prior Myocardial infarction) ASA 4: a patient with an incapacitating disease that is a constant threat to life (CHF, renal failure) ASA 5: a moribund patient not expected to survive 24 hrs. (ruptured aneurysm) ASA 6: a declared brain patient whose organs are being harvested. For emergent operations, add the letter E after the classification Grade 1 Sedation Plan: Discussed options with patient/fam Note The patient is an appropriate candidate to undergo the planned procedure, sedation, and anesthesia. The patient immediately re-assessed prior to indication. SHAWN BARFIELD MD Apr 16, 2017 8:24 am
--- NOTE | 2017-04-16 08:59 | Endo Procedure Record ---
Endo Procedure Report Date of Procedure Apr 16, 2017 Surgeon (s) SHAWN BARFIELD MD Post Procedure/Op Diagnosis postoperative stricture. Retained for in the stomach, suggestive of delayed gastric emptying Procedure Performed upper GI endoscopy. Balloon dilatation Description of Procedure Anesthesia Type: Conscious Sedation Specimen(s) collected/removed none Description of the Procedure indication for procedure: This lady had undergone fundoplication to manage severe esophageal reflux, with resolution of her symptoms. She reported intermittent dysphagia and therefore upper endoscopy with an intent to perform balloon dilatation, should a stricture be discovered, was felt to be reasonable. Informed consent was obtained after reviewing the procedure in detail. Description of the procedure: She was placed in left lateral decubitus position and her vital signs were monitored. Conscious sedation was achieved using Versed and fentanyl. The flexible gastroscope was then introduced down the esophagus, past the stomach, into the proximal duodenum. Findings: Esophagus: Intact fundoplication with a smooth, concentric stricture. It was dilated to 20 mm with the balloon. Stomach: Retained food possibly due to gastroparesis. Duodenum: Normal she tolerated the procedure well and was taken back to the nursing area in a stable condition. Impression: Post-fundoplication stricture, balloon dilatation completed. Possible gastroparesis and metoclopramide would be tried Copies To: HALLIE LINDER MD, XAVIER M MD Apr 16, 2017 8:59 am
[2017-04-16] MEDS ORDERED: METO-310 PO (09:02)
--- NOTE | 2017-04-16 09:02 | Discharge Inst-Simple/Standard ---
Discharge Inst-Standard Discharge Medications New, Converted or Re-Newed RX: RX on Chart Patient Instructions/Follow Up Plan of Care/Instructions/FU: my office will contact her regarding repair of a ventral hernia Activity as Tolerated: Yes Discharge Diet: Soft Diet SHAWN BARFIELD MD Apr 16, 2017 9:02 am
[2017-04-16 09:15] VITALS: BP 128/67
[2017-04-16 09:40] VITALS: BP 148/73
[2017-04-16 09:50] VITALS: BP 148/73
== END 2017-04-16 10:14 | disposition home or self-care (01) ==
LOC: ENDO 07:09
PROVIDERS: ATTEND Surgery
DX: K22.2 Esophageal obstruction (principal)

== ENCOUNTER 2017-06-05 05:40 | Outpatient (CLI) | payer MEDICARE, BC ==
[~2017-06-05] VITALS: Ht 162.6 cm; Wt 79.8 kg
[~2017-06-05 05:40] MED LIST changes: +METO-310 PO
[2017-06-05] MEDS ORDERED: DIPH25CA6 PO (13:07)
[2017-06-05] MEDS ORDERED: POTA2TAB15 PO (13:07)
[2017-06-05] MEDS ORDERED: LORA10TA7 PO (13:07)
[2017-06-05] MEDS ORDERED: CALC200T50 PO (13:07)
[2017-06-05] MEDS ORDERED: ALEN70SO3 PO (13:07)
[2017-06-05] MEDS ORDERED: DOCU100T2 PO (13:07)
[2017-06-05] MEDS ORDERED: GLUC100016 PO (13:07)
== END 2017-06-05 13:13 ==
LOC: PREOP 05:40
PROVIDERS: ATTEND Surgery
DX: Z01.818 Encounter for other preprocedural examination (principal); K43.9 Ventral hernia without obstruction or gangrene

== ENCOUNTER 2017-06-12 10:26 | Day surgery (SDC) | payer MEDICARE, BC ==
[~2017-06-12] VITALS: Ht 162.6 cm; Wt 79.8 kg
--- NOTE | 2017-06-12 10:00 | History & Physicial ---
History of Present Illness History of Present Illness Reason for visit/HPI To undergo robotic assisted repair of a ventral hernia or the epigastric region Date of Admission 06/12/17 Date Seen by Provider: Jun 12, 2017 Time Seen by Provider: 09:58 I consulted on this patient on 06/12/17 09:58 Attending Physician Shawn Barfield MD Admitting Physician Calvin rBennan MD Consult Allergies and Home Medications Allergies Coded Allergies: Penicillins (Verified Allergy, Mild, 06/05/17) Sulfa (Sulfonamide Antibiotics) (Verified Allergy, Mild, 06/05/17) fenofibrate (Verified Allergy, Mild, 06/05/17) procaine (Verified Allergy, Mild, 06/05/17) simvastatin (Unverified Allergy, Mild, 06/05/17) diltiazem (Unverified Allergy, Unknown, 06/05/17) isosorbide (Unverified Allergy, Unknown, 06/05/17) niacin (Unverified Allergy, Unknown, 06/05/17) nifedipine (Unverified Allergy, Unknown, 06/05/17) rosuvastatin (Unverified Allergy, Unknown, 06/05/17) levofloxacin (Unverified Adverse Reaction, Mild, 06/05/17) Home Medications Albuterol Sulfate 1 Puff Puff, 2 PUFF IH Q4H PRN for SHORTNESS OF BREATH, ( Reported) 1 PUFF = 90 MCG Alendronate Sodium 70 Mg/75 Ml Solution, 70 MG PO WEEK, (Reported) Alprazolam 0.25 Mg Tablet, 0.25 MG PO BID PRN for ANXIETY, (Reported) Aspirin 81 Mg Tab.chew, 81 MG PO DAILY, (Reported) Calcium Carbonate/Vitamin D3 1 Each Tablet, 1 EACH PO BID, (Reported) Calcium Citrate 200 Mg Tablet, 200 MG PO DAILY, (Reported) Cholecalciferol (Vitamin D3) 1,000 Unit Tablet, 1,000 UNIT PO BID, (Reported) Diphenhydramine HCl 25 Mg Capsule, 50 MG PO HS, (Reported) Docusate Sodium 100 Mg Tablet, 100 MG PO DAILY PRN for CONSTIPATION-1ST LINE, ( Reported) Fluticasone Propionate 9.9 Ml [place].susp, 1 SPRAY NSEACH DAILY, (Reported) Furosemide 20 Mg Tablet, 20 MG PO DAILY PRN for edema, (Reported) Glucosamine Sulfate 2Kcl 1,000 Mg Tablet, 500 MG PO BID, (Reported) Loratadine 10 Mg Tablet, 10 MG PO DAILY, (Reported) Omeprazole 20 Mg Tablet.dr, 20 MG PO DAILY, (Reported) Potassium Gluconate 500 Mg Tablet, 500 MG PO DAILY, (Reported) Vitamin B Complex 1 Each Capsule, 1 EACH PO DAILY, (Reported) Past Rzmqloz-Ejopve-Xtwrar Hx Patient Social History Marrital Status: Employed/Student: retired Recent Hopitalizations: No Seasonal Allergies Seasonal Allergies: Yes Surgeries Yes Adenoidectomy, Appendectomy, Hysterectomy, Joint Replacement, Nose, Pacemaker, Tonsillectomy Respiratory Yes Chronic Bronchitis Cardiovascular Yes Heart Murmur, Irregular Heartbeat Neurological No Reproductive System Hx Reproductive Disorders: No Sexually Transmitted Disease: No HIV/AIDS: No [employer] History: Hysterectomy Genitourinary UTI-Chronic Gastrointestinal Yes Gastroesophageal Reflux, Hemorrhoids, Hiatal Hernia Musculoskeletal Yes Arthritis, Rheumatoid Arthritis HEENT Loss of Vision: Bilateral Hearing Impairment: Denies Psychosocial Behavioral Health Disorders: Anxiety Integumentary Skin/Integumentary Disorders: Eczema Blood Transfusions Adverse Reaction to a Blood Tr: No Constitutional: no symptoms reported EENTM: no symptoms reported Respiratory: no symptoms reported Cardiovascular: no symptoms reported Gastrointestinal: see HPI Genitourinary: no symptoms reported Musculoskeletal: no symptoms reported Skin: no symptoms reported Psychiatric/Neurological: No Symptoms Reported Physical Exam Vital Signs Capillary Refill : General Appearance: No Apparent Distress HEENT: Normal ENT Inspection Neck: Normal Inspection Respiratory: Lungs Clear Cardiovascular: Regular Rate, Rhythm Gastrointestinal: Soft, Hernia Extremity: Normal Inspection Neurologic/Psychiatric: Alert, Oriented x3 Skin: Warm/Dry Comments Reducible hernia over the epigastric region Assessment/Plan Assessment and Plan Lady with a ventral hernia over the epigastric region. Robotic assisted repair with mesh reinforcement discussed; details reviewed. Seems to be in agreement to proceed Problems: SHAWN BARFIELD MD Jun 12, 2017 10:00 am
[~2017-06-12 10:26] MED LIST changes: +ALEN70SO3 PO; +DIPH25CA6 PO; +DOCU100T2 PO; +LORA10TA7 PO
--- OUTSIDE RECORDS SUMMARY | 2017-06-12 10:31 | XMS REPORT | Clinical Summary ---
Author Author [facility] Organization [facility] Address Unknown Phone Unavailable Care Team Providers Care Paint Technician Name Role Phone PCP Unavailable Source Comments Some departments are not documenting in the electronic medical record. If you do not see the information that you expected, contact Release of Information in the Health Information Management department at [phone] for further assistance in locating additional records.[facility] Allergies Active Allergy Reactions Severity Noted [...] Problem Noted Date Left acetabular fracture ([facility]) 02/25/2014 Female pelvic hematoma 01/14/2014 Bradycardia 01/14/2014 COPD (chronic obstructive pulmonary disease) ([facility]) 01/14/2014 Obesity 01/14/2014 Acute blood loss anemia 01/14/2014 Pelvic fracture ([facility]) 01/13/2014 Social History Tobacco Use [...] SCREENING 2005 PREVNAR/PNEUMOVAX (#1) 2005 INFLUENZA VACCINE 02/05/2017 Results Not on filefrom Last 3 Months
[2017-06-12 10:45] VITALS: BP 149/81
[2017-06-12] MEDS: LACTATED RINGERS 1,000 ML IV PRN ×3 (11:00→13:45)
[2017-06-12] MEDS ORDERED: FAMOTIDINE 20MG/2ML IV (PEPCID) IV ONE ×2 (11:15)
[2017-06-12] MEDS ORDERED: ceFAZolin 1,000 MG (ANCEF) VIAL ONE (11:25)
[2017-06-12] MEDS ORDERED: NS (IVPB) 50 ML ONE (11:26)
[2017-06-12 11:33] LABS: RED BLOOD COUNT 4.27 10^6/uL (4.35-5.85); RED CELL DISTRIBUTION WIDTH 16.4 % (10.0-14.5); WHITE BLOOD COUNT 7.9 10^3/uL (4.3-11.0)
[2017-06-12] MEDS ORDERED: ceFAZolin 1 GM/NS 50 ML IVPB IV ONE ×2 (11:45)
[2017-06-12] MEDS ORDERED: BUP/EPI 0.5% 1:200,000 (MARCAINE) 10ML VIAL IJ ONE (11:59)
--- NOTE | 2017-06-12 12:38 | Progress Note-Pre Operative ---
Pre-Operative Progress Note H&P Reviewed The H&P was reviewed, patient examined and no changes noted. Date Seen by Provider: May 16, 2017 Time Seen by Provider: 15:20 Date H&P Reviewed: Jun 12, 2017 Time H&P Reviewed: 12:37 Pre-Operative Diagnosis: Ventral hernia SHAWN BARFIELD MD Jun 12, 2017 12:38 pm
[2017-06-12] MEDS ORDERED: ROCURONIUM 50 MG/5 ML (ZEMURON) VIAL IV ONE (12:46)
[2017-06-12] MEDS ORDERED: KETAMINE HCL 100 MG/ML 5 ML VIAL ONE (12:46)
[2017-06-12] MEDS ORDERED: MIDAZOLAM 2 MG/2 ML (VERSED) VIAL ONE (12:46)
[2017-06-12] MEDS ORDERED: proPOfol 200 MG/20 ML (DIPRIVAN) VIAL IV ONE (12:46)
[2017-06-12] MEDS ORDERED: ONDANSETRON 4 MG/2 ML (SDV) Z0FRAN ONE (12:46)
[2017-06-12] MEDS ORDERED: DEXAMETHASONE 10 MG/ML (DECADRON) 1 ML VIAL ONE (12:46)
[2017-06-12] MEDS ORDERED: SEVOFLURANE (ULTANE) 15 ML INHAL SOLN ONE ×6 (12:46→14:31)
[2017-06-12] MEDS ORDERED: fentaNYL INJECTION 100 MCG/2 ML AMP ONE (13:15)
[2017-06-12] MEDS ORDERED: NEOSTIGMINE (BLOXIVERZ ) 1 MG/1ML 10 ML VIAL ONE (14:31)
[2017-06-12] MEDS ORDERED: GLYCOPYRROLATE 0.2 MG/ML (ROBINUL) 2 ML VIAL ONE (14:31)
--- NOTE | 2017-06-12 15:09 | Operative Report ---
Operative Report Date of Procedure/Surgery Jun 12, 2017 Surgeon (s) SHAWN BARFIELD MD Email Production Specialist (s): N/A Post-Operative Diagnosis Same(3 separate defects, measuring 2 cm each) Procedure Performed Robotic assisted repair of ventral hernia with mesh Description of Procedure Anesthesia Type: General Estimated blood loss (mL): Minimal Specimen(s) collected/removed None Description of the Procedure Indication for the procedure: This lady presented with a symptomatic ventral hernia, superior to the umbilicus. She was offered repair using minimally invasive technique robotic assistance and mesh reinforcement. Informed consent was obtained after reviewing the operative details and complications of hematoma , postoperative wound infection, cardiorespiratory dysfunction etc. Description of procedure: She was placed supine on the operative table and general anesthesia induced. A gram of Ancef was administered intravenously as prophylaxis against wound infection. Sequential compression devices were placed around her legs, to minimize the risk of venous thrombosis. Abdomen was prepared and draped in the usual sterile manner. The right side of her body was gently lifted up on a soft roll to facilitate triangulation of the robotic system. Pneumoperitoneum was established using a Veress needle introduced over the right subcostal margin, along the mid clavicular line. Intra-abdominal pressure was initially maintained at 15 mmHg, using carbon dioxide insufflation. A 12 mm trocar was placed and anatomy visualized using the high definition, 3-dimensional laparoscope, associated with da Kirit system. A total of 3 separate defects, 2 of them on each side of the umbilicus and the defect deep to the umbilicus, measuring about 2 cm each, were encountered. Under direct view, I placed another 12 mm trocar over the right side of the abdomen, along the mid axillary line, followed by a long 8 mm trocar over the right lower quadrant. The robotic system was then docked in place. Omentum was contained within the most cephalad off all 3 defects. It was taken down using hook cautery. The falciform ligament of the liver was taken down using the same device, to allow overlap of the mesh. Intra-abdominal pressure was then reduced to 11 mmHg, to facilitate closure of all 3 defects without any tension. This was achieved using 0, nonabsorbable, V- loc sutures. The repair was then reinforced with a polypropylene mesh attached to this self-retaining balloon system, measuring 6 x 8" in diameter. It was held up using the balloon system and the edges were secured using 20V LOC sutures with the robotic assistance. Hemostasis was satisfactory of the operation concluded Skin incisions were closed using 4-0 Vicryl, in a subcuticular fashion. 0.5 percent Marcaine with epinephrine was infiltrated along the incisions, both preemptively and at the conclusion of the operation. She tolerated the procedure well, was extubated in the operating room and taken to the recovery room in a stable condition. Findings of the Procedure See op report Allergies and Home Medications Allergies Coded Allergies: Penicillins (Verified Allergy, Mild, 06/05/17) Sulfa (Sulfonamide Antibiotics) (Verified Allergy, Mild, 06/05/17) fenofibrate (Verified Allergy, Mild, 06/05/17) procaine (Verified Allergy, Mild, 06/05/17) simvastatin (Unverified Allergy, Mild, 06/05/17) diltiazem (Unverified Allergy, Unknown, 06/05/17) isosorbide (Unverified Allergy, Unknown, 06/05/17) niacin (Unverified Allergy, Unknown, 06/05/17) nifedipine (Unverified Allergy, Unknown, 06/05/17) rosuvastatin (Unverified Allergy, Unknown, 06/05/17) levofloxacin (Unverified Adverse Reaction, Mild, 06/05/17) Home Medications Albuterol Sulfate 1 Puff Puff, 2 PUFF IH Q4H PRN for SHORTNESS OF BREATH, ( Reported) 1 PUFF = 90 MCG Alendronate Sodium 70 Mg/75 Ml Solution, 70 MG PO WEEK, (Reported) Alprazolam 0.25 Mg Tablet, 0.25 MG PO BID PRN for ANXIETY, (Reported) Aspirin 81 Mg Tab.chew, 81 MG PO DAILY, (Reported) Calcium Carbonate/Vitamin D3 1 Each Tablet, 1 EACH PO BID, (Reported) Calcium Citrate 200 Mg Tablet, 200 MG PO DAILY, (Reported) Cholecalciferol (Vitamin D3) 1,000 Unit Tablet, 1,000 UNIT PO BID, (Reported) Diphenhydramine HCl 25 Mg Capsule, 50 MG PO HS, (Reported) Docusate Sodium 100 Mg Tablet, 100 MG PO DAILY PRN for CONSTIPATION-1ST LINE, ( Reported) Fluticasone Propionate 9.9 Ml [place].susp, 1 SPRAY NSEACH DAILY, (Reported) Furosemide 20 Mg Tablet, 20 MG PO DAILY PRN for edema, (Reported) Glucosamine Sulfate 2Kcl 1,000 Mg Tablet, 500 MG PO BID, (Reported) Loratadine 10 Mg Tablet, 10 MG PO DAILY, (Reported) Omeprazole 20 Mg Tablet.dr, 20 MG PO DAILY, (Reported) Potassium Gluconate 500 Mg Tablet, 500 MG PO DAILY, (Reported) Vitamin B Complex 1 Each Capsule, 1 EACH PO DAILY, (Reported) SHAWN BARFIELD MD Jun 12, 2017 3:09 pm
[2017-06-12] MEDS ORDERED: PREGABALIN 75 MG (LYRICA) CAP PO ONE (15:15)
[2017-06-12] MEDS ORDERED: NON-FORMULARY MEDICATION 1 EA EA (Alendronate Sodium 70 MG) PO SCH (15:15)
[2017-06-12] MEDS ORDERED: ACETAMINOPHEN 500 MG TAB (TYLENOL) PO ONE (15:15)
[2017-06-12] MEDS ORDERED: ALPRAZolam 0.25 MG (XANAX) TAB PO PRN (15:15)
[2017-06-12] MEDS ORDERED: FUROSEMIDE 20 MG (LASIX) TAB PO PRN (15:15)
[2017-06-12] MEDS ORDERED: oxyCODONE ER 10 MG (OxyCONTIN CR) TAB PO ONE (15:15)
[2017-06-12] MEDS ORDERED: RT-ALBUTEROL HFA (VENTOLIN) PER PUFF IH PRN (15:15)
[2017-06-12] MEDS ORDERED: NON-FORMULARY MEDICATION 1 EA EA (Docusate Sodium 100 MG) PO PRN (15:15)
[2017-06-12] MEDS ORDERED: CELECOXIB 100 MG (CeleBREX) CAP PO ONE (15:15)
[2017-06-12] MEDS ORDERED: morphine INJ 10 MG/ML 1ML (SYR OR VIAL) IV PRN (15:15)
[2017-06-12] MEDS ORDERED: MEPERIDINE (DEMEROL) INJ 50 MG/ML IVP PRN (15:30)
[2017-06-12] MEDS ORDERED: ONDANSETRON 4 MG/2 ML (SDV) Z0FRAN IVP PRN (15:30)
[2017-06-12] MEDS ORDERED: HYDROmorphone (DILAUDID) 2 MG/ML VIAL IVP PRN (15:30)
[2017-06-12] MEDS: morphine INJ 10 MG/ML 1ML (SYR OR VIAL) IVP PRN ×2 (15:32→15:36)
[2017-06-12 16:25] VITALS: BP 182/80
[2017-06-12] MEDS ORDERED: INFLUENZA TRIvalent 2017-2018 0.5 ML/45 MCG SYR IM ONE (17:45)
[2017-06-12] MEDS ORDERED: DOCUSATE SODIUM 100 MG (COLACE) CAP PO PRN (18:00)
[2017-06-12] MEDS ORDERED: RT-ALBUTEROL SULF 2.5 MG/3 ML PRE-MIX VIAL IH PRN (18:00)
[2017-06-12 19:25] VITALS: BP 187/77
[2017-06-12] MEDS: diphenhydrAMINE 25 MG TAB (BENADRYL) PO SCH (20:58)
[2017-06-12] MEDS ORDERED: NON-FORMULARY MEDICATION 1 EA EA (Diphenhydramine HCl 50 MG) PO SCH (21:00)
[2017-06-12 23:07] VITALS: BP 155/71
[2017-06-13] VITALS: BP 167/74
[2017-06-13 05:00] VITALS: BP 178/84
[2017-06-13] MEDS: CALCIUM CARB + VIT D 600 MG (CALCARB + D) TAB PO SCH ×2 (06:23→18:04)
[2017-06-13] MEDS: PANTOPRAZOLE 20 MG TABLET (PROTONIX) PO SCH (06:24)
[2017-06-13 08:00] VITALS: BP 145/65
[2017-06-13] MEDS ORDERED: NON-FORMULARY MEDICATION 1 EA EA (Fluticasone Propionate (Flonase Allergy Relief) 1 SPRAY) NSEACH SCH (09:00)
[2017-06-13] MEDS ORDERED: POTASSIUM GLUCONATE 500 MG PO SCH (09:00)
[2017-06-13] MEDS: FLUTICASONE NASAL SPRAY (FLONASE) 16 GM BTL NS SCH (09:04)
[2017-06-13] MEDS: LORATADINE (CLARITIN) 10 MG TAB PO SCH (09:04)
[2017-06-13] MEDS ORDERED: ONDANSETRON 4 MG/2 ML (SDV) Z0FRAN IVP PRN (09:45)
--- NOTE | 2017-06-13 10:15 | Progress Note-Standard ---
Standard Progress Note Progress Notes/Assess & Plan Date Seen by Provider: Jun 13, 2017 Time Seen by Provider: 10:14 Progress/Assessment & Plan reported nausea and vomited this morning. Low-grade fever. Lungs clear. Vital signs stable. Incisions dry. Would benefit from an extra day in the hospital. Encouraged ambulation, use of incentive spirometry etc. Final Diagnosis ventral hernia. Postoperative nausea and vomiting SHAWN BARFIELD MD Jun 13, 2017 10:15 am
[2017-06-13] MEDS: ACETAMINOPHEN 500 MG TAB (TYLENOL) PO PRN (10:26)
[2017-06-13] MEDS ORDERED: DICL100G18 TP (10:53)
[2017-06-13] MEDS ORDERED: FLUT16SP22 NS (10:53)
[2017-06-13] MEDS ORDERED: ONDN4T PO (10:53)
[2017-06-13] MEDS ORDERED: METO-310 PO (10:53)
[2017-06-13] MEDS ORDERED: ALEN70TA47 PO (10:53)
[2017-06-13] MEDS: METOCLOPRAMIDE INJ 10 MG/2 ML (REGLAN) IVP SCH ×3 (11:47→23:19)
[2017-06-13 12:00] VITALS: BP 137/65
--- NOTE | 2017-06-13 14:23 | Anesthesia-General Post-Op ---
General Patient Condition Mental Status/LOC: Same as Preop Cardiovascular: Satisfactory Nausea/Vomiting: Absent Respiratory: Satisfactory Pain: Controlled Complications: Absent Post Op Complications Complications None Follow Up Care/Instructions Patient Instructions None needed. Anesthesia/Patient Condition Patient Condition Patient is doing well, no complaints, stable vital signs, no apparent adverse anesthesia problems. No complications reported per nursing. SAMINA ALBARRAN CRNA Jun 13, 2017 14:23
[2017-06-13 15:46] VITALS: BP 123/69
[2017-06-13 19:52] VITALS: BP 133/82
[2017-06-13] MEDS: diphenhydrAMINE 25 MG TAB (BENADRYL) PO SCH (21:01)
[2017-06-14] VITALS: BP 166/77
[2017-06-14] MEDS: CALCIUM CARB + VIT D 600 MG (CALCARB + D) TAB PO SCH (06:03)
[2017-06-14] MEDS: PANTOPRAZOLE 20 MG TABLET (PROTONIX) PO SCH (06:03)
[2017-06-14] MEDS: METOCLOPRAMIDE INJ 10 MG/2 ML (REGLAN) IVP SCH ×2 (06:03→12:20)
[2017-06-14] MEDS: ACETAMINOPHEN 500 MG TAB (TYLENOL) PO PRN (06:08)
[2017-06-14 07:33] VITALS: BP 122/66
[2017-06-14] MEDS: LORATADINE (CLARITIN) 10 MG TAB PO SCH (08:49)
[2017-06-14] MEDS: FLUTICASONE NASAL SPRAY (FLONASE) 16 GM BTL NS SCH (08:50)
[2017-06-14 12:55] VITALS: BP 122/66
--- NOTE | 2017-06-14 14:17 | Progress Note-Standard ---
Standard Progress Note Progress Notes/Assess & Plan Date Seen by Provider: Jun 14, 2017 Time Seen by Provider: 14:16 Progress/Assessment & Plan reported nausea and vomited this morning. Low-grade fever. Lungs clear. Vital signs stable. Incisions dry. Would benefit from an extra day in the hospital. Encouraged ambulation, use of incentive spirometry etc. Nausea and vomiting resolved. Tolerating diet. Lungs clear. Good cough efforts and is able to use incentive spirometry. Could be discharged home Final Diagnosis Ventral hernia SHAWN BARFIELD MD Jun 14, 2017 2:17 pm
--- NOTE | 2017-06-14 14:21 | Discharge Inst-Simple/Standard ---
Discharge Inst-Standard Discharge Medications New, Converted or Re-Newed RX: Other Patient Instructions/Follow Up Plan of Care/Instructions/FU: Incentive spirometry. F/U in 3 weeks (Please leave a romario @ [phone]) Activity as Tolerated: No Goal: No lifting over 10 lb Discharge Diet: No Restrictions Planned Outpatient Orders/Ref. Pneu Vac Indicated: Yes SHAWN BARFIELD MD Jun 14, 2017 2:21 pm
[2017-06-14 15:15] VITALS: BP 122/66
== END 2017-06-14 15:15 | disposition home or self-care (01) ==
LOC: SDC 10:26 → 4TH 16:25 → SDC 06-14 15:15
PROVIDERS: ATTEND Surgery
DX: K43.9 Ventral hernia without obstruction or gangrene (principal); R11.2 Nausea with vomiting, unspecified; J43.9 Emphysema, unspecified; R01.1 Cardiac murmur, unspecified; K21.9 Gastro-esophageal reflux disease without esophagitis; K44.9 Diaphragmatic hernia without obstruction or gangrene; M06.9 Rheumatoid arthritis, unspecified; F41.9 Anxiety disorder, unspecified; G47.33 Obstructive sleep apnea (adult) (pediatric); Z95.0 Presence of cardiac pacemaker; Z79.82 Long term (current) use of aspirin; Z79.899 Other long term (current) drug therapy; Z88.0 Allergy status to penicillin; Z88.2 Allergy status to sulfonamides; Z88.1 Allergy status to other antibiotic agents; Z88.8 Allergy status to other drugs, medicaments and biological substances
CPT/HCPCS: 36415; 85027; 87081; 94760